=== PATIENT | female | born 1985 | race Caucasian/White ===

== ENCOUNTER → 2016-07-23 | Outpatient (CLI) | payer BC ==
[~2016-07-23] MED LIST: ALBUAER19 INH; FLUT110A INH; MONT1TAB3 PO; PRENTAB26 PO
[2016-07-23 08:04] LABS: THYROID STIMULATING HORMONE 2.34 uIu/ml (0.300-4.500)
[2016-07-23 08:27] LABS: PROLACTIN 12.04 ng/mL
[2016-07-23 08:28] LABS: CALCULATED INSULIN SENSITIVITY 0.377; GLUCOSE LOG 1.9395; INSULIN FASTING 5.2 mU/L (3-25); INSULIN LOG 0.716
== END | disposition home or self-care (01) ==
LOC: C.LAB 07:05
PROVIDERS: ATTEND Obstetrics & Gynecology
DX: Z31.41 Encounter for fertility testing (principal)

== ENCOUNTER 2017-04-25 17:50 | Emergency (ER) | payer BC ==
[~2017-04-25] VITALS: Ht 165.1 cm; Wt 58.0 kg
[~2017-04-25 17:50] MED LIST changes: -MONT1TAB3 PO
[2017-04-25 17:54] VITALS: Ht 165.1 cm; Wt 58.0 kg
[2017-04-25] MEDS ORDERED: MONT1TAB3 PO (18:12)
[2017-04-25 18:38] LABS: BASO % 0.5 %; BASO ABS # 0.04 K/uL (0-0.2); EOS % 2.1 %; EOS ABS # 0.18 K/uL (0-0.5); HEMATOCRIT 43.6 % (37-47); HEMOGLOBIN 15.4 g/dL (12.0-16.0); IG# 0.02 K/uL (0.00-0.02); LYMPH % 41.2 %; LYMPH ABS # 3.57 K/uL (1.2-3.4); MEAN CELL VOLUME 87.4 fL (80-100); MEAN CORPUSCULAR HEMOGLOBIN 30.9 pg (25-34); MEAN CORPUSCULAR HGB CONC 35.3 g/dl (32-36); MEAN PLATELET VOLUME 9.5 fL (7.4-10.4); MONO % 6.8 %; MONO ABS # 0.59 K/uL (0.11-0.59); NEUT % 49.2 %; NEUT ABS # 4.27 K/uL (1.4-6.5); PLATELET COUNT 304 K/uL (130-400); RED CELL DISTRIBUTION WIDTH SD 41.3 fL (36.4-46.3); WHITE BLOOD COUNT 8.67 K/uL (4.8-10.8)
[2017-04-25 18:44] LABS: PTT PATIENT 28.5 SECONDS (21.0-31.0)
[2017-04-25 18:46] LABS: ALBUMIN 3.8 gm/dl (3.4-5.0); CREATININE 0.56 mg/dl (0.60-1.20); POTASSIUM 3.2 mmol/L (3.5-5.1)
[2017-04-25 18:49] LABS: TOTAL PROTEIN 7.7 gm/dl (6.4-8.2)
[2017-04-25] MEDS ORDERED: ALBUT/IPRATROP 3MG/0.5MG NEB 3 ML VIAL INH STA (19:17)
[2017-04-25 19:37] VITALS: O2SAT 100
--- NOTE | 2017-04-25 20:08 | DIAGNOSTIC IMAGING REPORT ---
CHEST 2 VIEWS ROUTINE HISTORY: Short of breath. COMPARISON: Chest 05/08/2012. FINDINGS: The lungs are clear. Cardiac silhouette is normal in size. No pleural effusions. No pneumothorax. Mild S-shaped scoliosis of the thoracic spine. This remains unchanged. IMPRESSION: No acute process. Electronically signed by: Tanvir Green M.D. 04/25/2017 8:06 PM Dictated Date/Time: 04/25/2017 8:06 PM
[2017-04-25] MEDS ORDERED: ALBUAER INH (20:27)
[2017-04-25] MEDS ORDERED: MULT-513 PO (20:27)
--- NOTE | 2017-04-25 20:55 | EMERGENCY ROOM VISIT NOTE ---
History First contact with patient: 19:07 Chief Complaint: RAPID HEART RATE Stated Complaint: SOB, STRUGGLING TO BREATHE, HEART RACING- REFERRED Nursing Triage Summary: Pt c/o "a lot of trouble breathing. I have asthma but it's been under control. I feel like I can't breath in or out well.". Pt states she has asthma, saw Dr. Maylin luna. Pt father had PE. Pt denies chest pain, c/o chest tightness since yesterday same time a trouble breathing. History of Present Illness The patient is a 31 year old female who presents to the Emergency Room with complaints of shortness of breath and chest tightness for the past 2 days. She states she started with URI symptoms last week of cough and congestion, this is improved but then her shortness of breath started to bother her. She reports a history of asthma, she states this has been well controlled for many years. She states she tried her albuterol inhaler once today without much improvement. She reports an episode of feeling like her heart was racing last night, she states this only lasted a few minutes, and denies any feelings of heart racing or palpitations at this time. She did go to an urgent care and was evaluated there, they sent her to the emergency department for further evaluation. Patient states that her father had a PE related to a DVT that came on after surgery, she is concerned that she might have a PE as well and wants to be checked for this. She denies any chest pain, cough, hemoptysis, dizziness or syncope, leg pain or swelling, recent surgeries or immobilization, or exogenous estrogen use. Her last menstrual period was 2 weeks ago and she denies any chance of . She denies any headaches, neck pain or stiffness, fevers or chills, back pain, abdominal pain, nausea or vomiting, diarrhea, bloody or black stools, urinary symptoms, abnormal vaginal bleeding or discharge, or rash. Review of Systems A complete 10 point review of systems was reviewed with the patient with pertinent positives and negatives as per history of present illness. All else were negative. Past Medical/Surgical History Medical Problems: (1) Asthma (2) Mtmmcpw-Iojwb-Ztess disease (3) [place] Teeth Removal Social History Smoking Status: Never Smoker Current/Historical Medications Scheduled Montelukast Sodium (Singulair), 10 MG PO DAILY Multivitamins/Minerals (Mvi With Minerals), 1 TAB PO DAILY Scheduled PRN Albuterol Sulfate (Proventil Hfa), 2 PUFFS INH QID PRN for SOB/Wheezing Allergies Reviewed in chart Physical Exam Vital Signs Date Time Temp Pulse Resp B/P (MAP) Pulse Ox O2 Delivery O2 Flow Rate FiO2 04/25/17 21:55 36.9 58 18 102/55 97 Room Air 04/25/17 20:38 37.0 63 18 91/64 93 Room Air 04/25/17 20:01 64 04/25/17 19:42 36.9 66 18 91/51 99 Room Air 04/25/17 19:37 100 Room Air 04/25/17 19:37 100 Room Air Physical Exam CONSTITUTIONAL: Pleasant and cooperative. No acute distress. Well hydrated, well appearing and well nourished. HEENT: Normocephalic, atraumatic. Pupils equal, round and reactive to light, EOMI. TMs normal. Pharynx normal. Moist membranes. NECK: Supple, full active range of motion without discomfort. RESPIRATORY: Diminished breath sounds throughout, but clear to auscultation bilaterally with no wheezing, crackles, rhonchi or stridor. No accessory muscle use. She is not tachypneic and able to speak in full sentences. Equal expansion bilaterally. CARDIOVASCULAR: Regular rate and rhythm with no murmurs, rubs or gallops. Normal peripheral perfusion. No edema. GASTROINTESTINAL: Soft, nontender, nondistended. No palpable masses or HSM. Bowel sounds present in all quadrants. MUSCULOSKELETAL: Full range of motion of all joints without discomfort. INTEGUMENTARY: No rash or other significant dermatologic conditions noted. NEUROLOGIC: Alert and oriented X 4 with normal affect. Cranial nerves II-XII grossly intact. No focal neurologic deficits noted. Normal strength and sensation in all 4 extremities. Normal speech. Normal gait observed. Medical Decision & Procedures ER Provider Diagnostic Interpretation: CHEST 2 VIEWS ROUTINE HISTORY: Short of breath. COMPARISON: Chest 05/08/2012. FINDINGS: The lungs are clear. Cardiac silhouette is normal in size. No pleural effusions. No pneumothorax. Mild S-shaped scoliosis of the thoracic spine. This remains unchanged. IMPRESSION: No acute process. Laboratory Results 04/25/17 18:05 Red Blood Count 4.99, Mean Corpuscular Volume 87.4, Mean Corpuscular Hemoglobin 30.9, Mean Corpuscular Hemoglobin Concent 35.3, Mean Platelet Volume 9.5, Neutrophils (%) (Auto) 49.2, Lymphocytes (%) (Auto) 41.2, Monocytes (%) (Auto) 6.8, Eosinophils (%) (Auto) 2.1, Basophils (%) (Auto) 0.5, Neutrophils # (Auto) 4.27, Lymphocytes # (Auto) 3.57, Monocytes # (Auto) 0.59, Eosinophils # (Auto) 0.18, Basophils # (Auto) 0.04 04/25/17 18:05 Test 04/25/17 18:05 04/25/17 19:40 04/25/17 19:47 White Blood Count 8.67 K/uL (4.8-10.8) Red Blood Count 4.99 M/uL (4.2-5.4) Hemoglobin 15.4 g/dL (12.0-16.0) Hematocrit 43.6 % (37-47) Mean Corpuscular Volume 87.4 fL (80-100) Mean Corpuscular Hemoglobin 30.9 pg (25-34) Mean Corpuscular Hemoglobin Concent 35.3 g/dl (32-36) Platelet Count 304 K/uL (130-400) Mean Platelet Volume 9.5 fL (7.4-10.4) Neutrophils (%) (Auto) 49.2 % Lymphocytes (%) (Auto) 41.2 % Monocytes (%) (Auto) 6.8 % Eosinophils (%) (Auto) 2.1 % Basophils (%) (Auto) 0.5 % Neutrophils # (Auto) 4.27 K/uL (1.4-6.5) Lymphocytes # (Auto) 3.57 K/uL (1.2-3.4) Monocytes # (Auto) 0.59 K/uL (0.11-0.59) Eosinophils # (Auto) 0.18 K/uL (0-0.5) Basophils # (Auto) 0.04 K/uL (0-0.2) RDW Standard Deviation 41.3 fL (36.4-46.3) RDW Coefficient of Variation 13.0 % (11.5-14.5) Immature Granulocyte % (Auto) 0.2 % Immature Granulocyte # (Auto) 0.02 K/uL (0.00-0.02) Prothrombin Time 11.0 SECONDS (9.0-12.0) Prothromb Time International Ratio 1.0 (0.9-1.1) Activated Partial Thromboplast Time 28.5 SECONDS (21.0-31.0) Partial Thromboplastin Ratio 1.1 Anion Gap 7.0 mmol/L (3-11) Est Creatinine Clear Calc Drug Dose 129.8 ml/min Estimated GFR () 143.0 Estimated GFR (Non- 123.4 BUN/Creatinine Ratio 9.4 (10-20) Calcium Level 9.0 mg/dl (8.5-10.1) Total Bilirubin 0.3 mg/dl (0.2-1) Aspartate Amino Transf (AST/SGOT) 17 U/L (15-37) Alanine Aminotransferase (ALT/SGPT) 18 U/L (12-78) Alkaline Phosphatase 50 U/L (45-117) Total Protein 7.7 gm/dl (6.4-8.2) Albumin 3.8 gm/dl (3.4-5.0) Globulin 3.9 gm/dl (2.5-4.0) Albumin/Globulin Ratio 1.0 (0.9-2) Urine Color YELLOW Urine Appearance CLEAR (CLEAR) Urine pH 6.5 (4.5-7.5) Urine Specific [place] 1.007 (1.000-1.030) Urine Protein NEG (NEG) Urine Glucose (UA) NEG (NEG) Urine Ketones NEG (NEG) Urine Occult Blood NEG (NEG) Urine Nitrite NEG (NEG) Urine Bilirubin NEG (NEG) Urine Urobilinogen NEG (NEG) Urine Leukocyte Esterase TRACE (NEG) Urine WBC (Auto) 1-5 /hpf (0-5) Urine RBC (Auto) 0-4 /hpf (0-4) Urine Hyaline Casts (Auto) 0 /lpf (0-5) Urine Epithelial Cells (Auto) 10-20 /lpf (0-5) Urine Bacteria (Auto) NEG (NEG) Urine Test NEG (NEG) Bedside D-Dimer 417 ng/mlFEU (0-450) Medications Administered Medications (Trade) Dose Ordered Sig/Douglas Route Start Time Stop Time Status Last Admin Dose Admin Albuterol/ Ipratropium (Duoneb) 3 ml NOW STAT INH 04/25/17 19:17 04/25/17 19:19 DC 04/25/17 19:28 3 ML ECG Indication: SOB/dyspnea Rate (beats per minute): 62 Rhythm: normal sinus Findings: no acute ischemic change, no ectopy, other (rightward axis) Change: no significant change (when compared to EKG of 05/08/2012, no changes appreciated) Medical Decision CC: Patient presenting with complaint of shortness of breath, chest tightness Interpretation of Labs: No leukocytosis, no anemia, mild hypokalemia, no other significant electrolyte abnormalities, normal renal function, normal liver enzymes. Negative d-dimer. UA negative, negative urine . Differential Diagnosis: Includes, but not limited to viral URI, bronchitis, pneumonia, asthma exacerbation, pneumothorax, PE, among others. Medication Reconciliation: I attest that I have personally reviewed the patient' s current medication list. Initial vital signs review: I reviewed the patient's vital signs and interpret them as follows: T: Afebrile; BP: Mildly hypotensive (patient states this is her baseline); HR: Within normal limits; RR: Within normal limits; Pulse Ox: Within normal limits on room air. Blood pressure screening: The patient was found to have normal blood pressure on screening and does not require follow-up for repeat blood pressure check. Summary: Patient was evaluated at bedside, history and physical exam performed. Patient is alert and oriented, no acute distress, resting, in the stretcher. Patient does not show any evidence of respiratory distress on exam. Lungs are clear, but diminished throughout. She has not tachycardic or tachypneic, not hypoxic, and no significant risk factors for PE. PERC negative. Patient is very concerned about the possibility of a PE, I discussed that I feel this is a low risk, however she wish to have this ruled out, therefore I performed a d-dimer. Orders were placed at bedside for labs, UA and urine , and DuoNeb treatment, chest x-ray to evaluate for cardiopulmonary disease. Patient discussed with Dr. Dumont, who agrees with my assessment and plan. Labs reviewed as above, unremarkable. Specifically, d-dimer is negative. Chest x-ray is unremarkable, negative for pneumonia or any other acute abnormalities. EKG shows normal sinus rhythm with no acute ischemic changes by my interpretation. Patient reassessed multiple times throughout ED stay, she reports she is feeling much better after DuoNeb treatment. I reassessed her lungs, there still clear, but she is now moving air better. I suspect her symptoms may be related to a mild asthma exacerbation. I updated the patient on all results and plan for discharge, encouraging her to follow closely with her primary care provider. I also instructed the patient to use her albuterol inhaler for her symptoms, and discussed strict return precautions should her symptoms worsen, she verbalized understanding. The patient was discharged home in stable condition and ambulatory. Impression Primary Impression: Shortness of breath Additional Impression: Asthma exacerbation, mild Departure Information Dispostion Home / Self-Care Condition GOOD Referrals No Doctor, Assigned (PCP) Patient Instructions ED Dyspnea Shortness of Breath, ED Inhaler Use, [facility] Additional Instructions You have been evaluated in the emergency department for your shortness of breath. There is no evidence of pneumonia on your chest x-ray. Use your albuterol inhaler TWO puffs every 4 hours as needed for shortness of breath, wheezing, and chest tightness. Drink plenty of fluids to stay well hydrated. Please follow-up with your PCP in the next few days to be rechecked if your symptoms are not getting any better. Please return to the emergency department if your symptoms worsen over the next 2-3 days despite treatment course outlined above. Return to the emergency department if you develop the following symptoms of: inability to swallow solids , liquids, or drool; excessive wheezing or inability to catch your breath; worsening chest pain, coughing up blood, severe dizziness or passing out; fever or pain that becomes unmanageable with [id number] medications; or any other concerns. Work Instructions Return To Work: 2 days Problem Qualifiers
[2017-04-25 21:55] VITALS: BP 102/55; PULSE 58; TEMP 36.9; O2SAT 97
== END 2017-04-25 22:08 | disposition home or self-care (01) ==
LOC: C.EDB 17:51 → C.EDA 22:08
DX: R06.02 Shortness of breath (principal); J45.901 Unspecified asthma with (acute) exacerbation

== ENCOUNTER 2023-03-25 01:30 | Inpatient (IN) ==
[2023-03-25] MEDS ORDERED: LIDOCAINE 1% LOCAL 20 ML VIAL INFIL PRN (04:26)
[2023-03-25] MEDS ORDERED: OXYTOCIN 30 UNITS/NSS 30 UNITS/500 ML BAG IV PRN ×3 (04:26→11:12)
[2023-03-25] MEDS: LACTATED RINGER'S 1,000 ML IV PRN ×2 (04:29→05:25)
[2023-03-25] MEDS ORDERED: fentaNYL citrate PF 100 MCG/2 ML VIAL ONE (04:30)
[2023-03-25] MEDS ORDERED: SODIUM CHLORIDE 0.9% PF INJ 10 ML VIAL ONE (04:30)
[2023-03-25] MEDS ORDERED: ePHEDrine sulfate 50 MG/ML AMP ONE (04:30)
[2023-03-25] MEDS ORDERED: LIDOCAINE 2%/EPINEPHRINE 1:200,000 20 ML PF ONE (04:31)
[2023-03-25] MEDS ORDERED: BUPIVACAINE 0.25% PF 30 ML VIAL ONE (04:31)
[2023-03-25] MEDS ORDERED: fentANYL 2 MCG/ML BUPIVacaine 0.125%-NSS 100ML BAG ONE (04:31)
--- NOTE | 2023-03-25 05:05 | Anesthesiology Consultation ---
Date of Service March 25, 2023 Assessment & Plan ASA ASA2 Proposed Anesthesia Anesthesia Type: Labor Epidural Risk / Benefits Reviewed With: PT / POA / Parent / Guardian, Accepts Plan and Informed Consent Obtained History Height/Weight Height: 5 ft 4.5 in Weight: 73.028 kg Allergies Allergy/AdvReac Type Severity Reaction Status Date / Time Sulfa (Sulfonamide Allergy Severe Redness of Verified 03/25/23 01:48 Antibiotics) Skin Medications Home Medications Medication Instructions Recorded Confirmed Last Taken albuterol sulfate 90 mcg/actuation 2 puff inhalation Q6H PRN wheezing 12/06/20 03/25/23 Unknown aerosol inhaler (Proventil HFA) ascorbic acid (vitamin C) 1,000 mg 2 g PO DAILY 08/03/22 03/25/23 03/24/23 capsule cholecalciferol (vitamin D3) 125 125 mcg PO DAILY 08/03/22 03/25/23 03/24/23 mcg (5,000 unit) capsule prenat.vits,karl,hjo-ublh-fwbtx 1 tab PO DAILY 08/03/22 03/25/23 03/24/23 levothyroxine 50 mcg tablet See Rx Instructions PO DAILY #114 12/14/22 03/25/23 03/24/23 tabs Active Medications Generic Name Dose Route Start Last Admin Trade Name Freq PRN Reason Stop Dose Admin Lactated Ringer's 1,000 mls @ 125 mls/hr 03/25/23 04:26 03/25/23 05:25 Lr IV 03/27/23 04:25 125 mls/hr .Q8H PRN Administration L&D Protocol Protocol Past Medical History Medical History Nico's disease Asthma well controlled-rescue inhaler as needed Vitamin D deficiency Warts, genital Hx of migraines UTI (urinary tract infection) History of chicken pox Hyperandrogenism Hypothyroidism affecting Shortness of breath Exercise / Class Metabolic Activity II 4-5 Yardwork/Stairs/Walk up hill Past Family History Family History Grandmother (Maternal) Colorectal cancer Father FH: prostate cancer Brother Diabetes Denies family history of Ovarian cancer Breast cancer Past Surgical History Surgical History (Reviewed 03/25/23 @ 05:05 by HOMA Palomo H/O dilation and curettage [place] teeth extracted Past Anesthesia History No Hx of Anesthesia Complications and No Family Hx of Anesthesia Complications History of PONV No Hx of PONV and No Hx of Motion Sickness Social History Smoking Status: Never smoker Do You Dip or Chew Tobacco: No Hx Alcohol Use: No Hx Substance Use: No substance use type: does not use Review of Systems denies fever/cough/ colds/ chest pain/ SOB/ ALVINO denies ALVINO Physical Exam Vital Signs Last Vital Signs Temp 36.9 C 03/25/23 01:51 Pulse 65 03/25/23 05:11 Resp 18 03/25/23 01:51 BP 107/56 L 03/25/23 01:50 Pulse Ox 99 03/25/23 05:11 O2 Del Method Room Air 03/25/23 01:51 ENMT Mouth: no TMJ abnormality and no dentition abnormality Thyromental Distance: > or= 3.5 Finger Breadths Mallampati Class: II Neck neck extension not limited Respiratory normal respiratory effort; no respiratory distress Auscultation: lungs clear to auscultation bilaterally Cardiovascular Rate/Rhythm: regular rate and regular rhythm Neurologic moves all extremities Psychiatric Orientation: alert and oriented x 3 Testing Laboratory Results 03/25/23 04:45
--- NOTE | 2023-03-25 05:06 | History & Physical Report ---
Date of Service March 25, 2023 Assessment & Plan (1) Active labor: Plan: 37 yo at 40 wga admitted in labor VSS Fetus cat 1 Labor - manage expectantly, pit prn GBS neg desires epidural History of Present Illness Chief Complaint: ctx Primary Care Provider: Amy Padilla 37 yo at 40 wga presents w/ ctx increasing in frequency and intensity. +FM; denies lOF, VB. Initial exam 3/50/-1 by nursing, progressed to 4.5/80/-1 PNI:Hypothyroid AMA Charcot Dalia Tooth Psast [employer] Hx: G1 2012 SAB G2 2014 G3 current Allergies Allergy/AdvReac Type Severity Reaction Status Date / Time Sulfa (Sulfonamide Allergy Severe Redness of Verified 03/25/23 01:48 Antibiotics) Skin Home Medications Medication Instructions Recorded Confirmed Type albuterol sulfate 90 mcg/actuation 2 puff inhalation Q6H PRN wheezing 12/06/20 03/25/23 History aerosol inhaler (Proventil HFA) ascorbic acid (vitamin C) 1,000 mg 2 g PO DAILY 08/03/22 03/25/23 History capsule cholecalciferol (vitamin D3) 125 125 mcg PO DAILY 08/03/22 03/25/23 History mcg (5,000 unit) capsule prenat.vits,karl,wtl-opsz-chqld 1 tab PO DAILY 08/03/22 03/25/23 History levothyroxine 50 mcg tablet See Rx Instructions PO DAILY #114 12/14/22 03/25/23 Rx tabs Patient History Medical History (Updated 03/25/23 @ 07:40 by Amanda Cole MD) Nico's disease Asthma well controlled-rescue inhaler as needed Vitamin D deficiency Warts, genital Hx of migraines UTI (urinary tract infection) History of chicken pox Hyperandrogenism Hypothyroidism affecting Shortness of breath Surgical History H/O dilation and curettage [place] teeth extracted Family History Grandmother (Maternal) Colorectal cancer Father FH: prostate cancer Brother Diabetes Denies family history of Ovarian cancer Breast cancer Social History Smoking Status: Never smoker Do You Dip or Chew Tobacco: No; Hx Alcohol Use: No Hx Substance Use: No Preferred Language: Niuean Communication Ability: Effective Mailing Clerk Required: No Beliefs That Will Affect Care: None marital status: marital status details: Armando Fraser (35) [phone] Current Living Situation: Spouse Current Living Situation Comment: House with and daughter current occupational status: employed 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 Feels Safe at Home: Yes Assistive Devices: None Physical Exam Genitourinary: OB Exam Monitor Tracing: + external FHT monitor used, + external uterine monitor used and + category I Results & Data Vital Signs (Past 12 Hours) Vital Signs Temp Pulse Resp BP Pulse Ox O2 Del Method 03/25/23 04:56 67 99 03/25/23 04:51 70 99 03/25/23 04:46 78 99 03/25/23 04:41 68 98 03/25/23 04:36 81 99 03/25/23 01:51 98.4 F 18 Room Air 03/25/23 01:50 98.4 F 63 18 107/56 L Laboratory Results OB Labs: Blood Type AB Positive 08/18/22 Antibody Screen NEGATIVE 08/18/22 Hemoglobin 11.4 g/dl (12.0-16.0) L 01/01/23 Hematocrit 33.1 % (37.0-47.0) L 01/01/23 Mean Corpuscular Volume 89.2 fL (80.0-100.0) 12/15/22 Platelet Count 269 K/uL (130-400) 12/15/22 Rubella IgG Antibody Immune (Immune) 08/18/22 Rapid Plasma Reagin Nonreactive (Nonreactive) 08/18/22 Hepatitis B Surface Antigen. NON-REACTIVE (NON-REACTIVE) 08/18/22 Hepatitis C Antibody (EIA) NON-REACTIVE (NON-REACTIVE) 08/18/22 HIV (1&2) Ag and Ab Confirmation NON-REACTIVE (NON-REACTIVE) 08/18/22 Glucose 1 Hour 50 gm Load 106 mg/dl (70-130) 01/01/23 Maternal Serum Alpha Fetoprotein 29.4 ng/mL 10/10/22 OB Optional Labs: Chlamydia trachomatis RNA Not Detected (NotDetected) 08/18/22 Neisseria gonorrhoeae RNA Not Detected (NotDetected) 08/18/22 Thyroid Stimulating Hormone (TSH) 0.769 uIu/ml (0.300-4.500) 02/06/23 Alpha Fetoprotein Triple Screen SEE NOTE 10/10/22 Labs Reviewed: Horizon 14-negative--mln cfdna-low risk--mln neg afp--akh GBS neg Code Status & VTE Plan VTE Prophylaxis Plan VTE Prophylaxis will be ordered: No Coding Level of Care Code None Diagnoses Active labor
[2023-03-25 05:11] LABS: Hematocrit (blood only) 33.6 % (37.0-47.0); Hemoglobin 11.7 g/dl (12.0-16.0); Mean Corpuscular Hemoglobin 31.1 pg (25.0-34.0); Mean Corpuscular Hgb Conc 34.8 g/dL (32.0-36.0); Mean Corpuscular Volume 89.4 fL (80.0-100.0); Mean Platelet Volume 10.2 fL (9.4-12.4); Platelet Count 228 K/uL (130-400); RDW Coefficient of Variation 13.3 % (11.5-14.5); RDW Standard Deviation 43.5 fL (36.4-46.3); Red Blood Count 3.76 M/uL (4.20-5.40); White Blood Count 11.57 K/ul (4.8-10.8)
[2023-03-25] MEDS ORDERED: ACETAMINOPHEN 1,000 MG/100 ML VIAL IV PRN (05:48)
--- NOTE | 2023-03-25 05:50 | Communication Note ---
Date of Service: March 25, 2023
[2023-03-25] MEDS ORDERED: NALOXONE HCL 0.4 MG/1 ML VIAL/CARP IV PRN ×2 (07:00→12:30)
[2023-03-25] MEDS ORDERED: ROPIVACAINE 0.5% PF 5 MG/ML 20 ML VIAL EPI PRN (07:00)
[2023-03-25] MEDS ORDERED: fentANYL 2 MCG/ML BUPIVacaine 0.125%-NSS 100ML BAG EPI PRN (07:00)
[2023-03-25] MEDS ORDERED: SODIUM CHLORIDE 0.9% PF INJ 10 ML VIAL EPI PRN (07:00)
[2023-03-25] MEDS ORDERED: fentaNYL citrate PF 100 MCG/2 ML VIAL EPI STA (07:00)
[2023-03-25] MEDS ORDERED: BUPIVACAINE 0.25% PF 30 ML VIAL EPI PRN (07:00)
[2023-03-25] MEDS ORDERED: BUPIVACAINE 0.25% PF 30 ML VIAL EPI STA (07:00)
[2023-03-25] MEDS ORDERED: NALOXONE HCL 1 MG in SODIUM CHLORIDE 0.9% 1,000 ML IV PRN ×2 (07:00→12:30)
[2023-03-25] MEDS ORDERED: diphenhydrAMINE 50 MG/ML VIAL IV PRN ×2 (07:00→12:30)
[2023-03-25] MEDS ORDERED: ePHEDrine sulfate 50 MG/ML AMP IV PRN ×3 (07:00→13:05)
[2023-03-25] MEDS ORDERED: NALBUPHINE HCL 5 MG in SYRINGE 0 ML IV PRN ×2 (07:00→12:30)
[2023-03-25] MEDS ORDERED: LIDOCAINE 2% MPF LOCAL 5 ML VIAL EPI PRN (07:00)
[2023-03-25] MEDS ORDERED: fentaNYL citrate PF 100 MCG/2 ML VIAL EPI PRN (07:00)
[2023-03-25] MEDS ORDERED: LIDOCAINE 2%/EPINEPHRINE 1:200,000 20 ML PF EPI STA (07:00)
[2023-03-25] MEDS ORDERED: SODIUM CHLORIDE 0.9% PF INJ 10 ML VIAL EPI STA (07:00)
[2023-03-25] MEDS ORDERED: ONDANSETRON INJ 2 MG/ML 2 ML VIAL IV PRN ×2 (07:00→13:05)
--- NOTE | 2023-03-25 07:43 | Labor Progress Brief Note ---
Date of Service March 25, 2023 Subjective Comfortable w/ epidural, had DUPONT from wet tap but improving Assessment & Plan (1) Active labor: Plan: 37 yo at 40 wga admitted in labor VSS Fetus cat 1 Labor - s/p arom, will see if helps ctx pattern. Pit prn GBS neg epidural in place Admission and Anticipated Discharge Date Admission Date: March 25, 2023 Physical Exam Genitourinary: Manual OB Exam: + cervical dilation (4.5), + cervical effacement 70%, + station -1 and + amniotic fluid (arom clear) OB Exam Monitor Tracing: + external FHT monitor used, + external uterine monitor used and + category I Results & Data Vital Signs (Past 12 Hours) Vital Signs Temp Pulse Resp BP Pulse Ox O2 Del Method 03/25/23 07:36 76 100 03/25/23 07:31 64 98 03/25/23 07:27 69 91/51 L 03/25/23 07:26 67 99 03/25/23 07:21 67 98 03/25/23 07:16 63 100 03/25/23 07:12 60 101/55 L 03/25/23 07:11 60 99 03/25/23 07:06 65 99 03/25/23 07:01 66 99 03/25/23 06:58 98.2 F 20 03/25/23 06:56 61 99 03/25/23 06:55 64 104/62 03/25/23 06:51 61 99 03/25/23 06:46 63 98 03/25/23 06:41 60 98 03/25/23 06:40 67 93/52 L 03/25/23 06:36 64 99 03/25/23 06:31 99 03/25/23 06:31 64 03/25/23 06:31 65 98/57 L 03/25/23 06:30 16 03/25/23 06:30 16 03/25/23 06:26 64 98 03/25/23 06:25 60 89/52 L 03/25/23 06:21 63 98 03/25/23 06:16 65 98 03/25/23 06:11 67 96/54 L 98 03/25/23 06:06 68 98 03/25/23 06:01 68 97 03/25/23 06:00 18 03/25/23 06:00 18 03/25/23 05:56 68 98 03/25/23 05:54 70 110/55 L 03/25/23 05:52 66 107/58 L 03/25/23 05:51 69 98 03/25/23 05:50 63 97/52 L 03/25/23 05:48 65 109/53 L 03/25/23 05:46 66 101/56 L 98 03/25/23 05:44 65 95/52 L 03/25/23 05:42 76 101/50 L 03/25/23 05:41 77 99 03/25/23 05:40 71 105/58 L 03/25/23 05:38 73 97/53 L 03/25/23 05:36 99 03/25/23 05:36 74 03/25/23 05:36 70 114/58 L 03/25/23 05:34 71 102/56 L 03/25/23 05:32 73 116/56 L 03/25/23 05:31 73 99 03/25/23 05:30 78 117/61 03/25/23 05:26 71 98 03/25/23 05:21 77 99 03/25/23 05:16 75 120/59 L 100 03/25/23 05:14 20 03/25/23 05:14 98.2 F 20 03/25/23 05:11 65 99 03/25/23 05:06 66 99 03/25/23 05:01 71 100 03/25/23 04:56 67 99 03/25/23 04:51 70 99 03/25/23 04:46 78 99 03/25/23 04:41 68 98 03/25/23 04:36 81 99 03/25/23 01:51 98.4 F 18 Room Air 03/25/23 01:50 98.4 F 63 18 107/56 L Coding Level of Care Code None Diagnoses Active labor
--- NOTE | 2023-03-25 10:48 | Delivery Summary ---
Vaginal Delivery Summary Date of Service March 25, 2023 Vaginal Delivery Summary [facility] PREOPERATIVE DIAGNOSIS: 1. Single intrauterine at 40 wga 2. Labor 3. Hypothyroid 4. AMA POSTOPERATIVE DIAGNOSIS: 1. Single intrauterine at 40 wga 2. Labor 3. Hypothyroid 4. AMA 5. Delivered PROCEDURE: 1. Normal spontaneous vaginal delivery. SURGEON: Amanda Cole MD ANESTHESIA: Epidural. ESTIMATED BLOOD LOSS: 300 mL FLUIDS: Continuous LR. URINE OUTPUT: None. COMPLICATIONS: None. CONDITION: Stable. INDICATIONS: 37 yo at 40 wga presented w/ ctx increasing in frequency and intensity. On arrival she was 3cm and progressed to 4. She received an epidural for pain control. She underwent arom. Pitocin was started due to contractions spacing out. She progressed to complete and desired to push FINDINGS: A viable female , weight pending with Apgars of 8 and 9 at 1 and 5 minutes respectively. SPECIMEN: Cord blood OPERATIVE REPORT: The patient progressed to 10 cm, 100% effaced and +2 station, pushed over intact perineum with anesthesia to deliver a viable female , weight and Apgars as above. Head of delivered in JAIR position. No nuchal cord was present. Body and shoulders were delivered without difficulty. was delivered to maternal abdomen and nursing staff. Delayed cord clamping was performed for 60 seconds. Cord was clamped and cut. Cord blood was obtained. Placenta delivered spontaneously intact with 3-vessel cord. IV oxytocin and fundal massage were given for excellent hemostasis. Vagina, cervix, perineum, and placenta were inspected. A small vaginal laceration was noted and repaired using 3-0 vicryl. There was excellent hemostasis. Sponge and needle counts correct x2. No sponges were left behind. Mother and stable in immediate period. [facility] [place] Vaginal Delivery Codes: 52872 global code for the antepartum, delivery, and post- Delivery Type Details: [facility]
[2023-03-25] MEDS ORDERED: ALBUTEROL HFA 8 GM INHALER INH PRN (11:12)
[2023-03-25] MEDS ORDERED: DIPHTHERIA/TETANUS/PERTUSSIS Vaccine (Tdap, Age 7+yrs) 0.5mL SYR/VL IM ONE (11:12)
[2023-03-25] MEDS ORDERED: HYDROCORTISONE ACETATE 25 MG SUPP PR PRN (11:12)
[2023-03-25] MEDS ORDERED: BENZOCAINE 20% SPRY 85 APPLN/85 GM CAN EXT PRN (11:12)
[2023-03-25] MEDS ORDERED: ACETAMINOPHEN 325 MG TAB PO PRN (11:12)
[2023-03-25] MEDS ORDERED: bisacodyL 10 MG SUPP PR PRN (11:12)
[2023-03-25] MEDS ORDERED: COSYNTROPIN 1,000 MCG in SODIUM CHLORIDE 0.9% 50 ML IV ONE (12:00)
[2023-03-25] MEDS ORDERED: MoRPHine SULFATE PF 1 MG/ML 10 ML AMP/VIAL INT SPINAL ONE (12:30)
[2023-03-25] MEDS ORDERED: DC INTRASPINAL MORPHINE SCH (12:30)
[2023-03-25] MEDS ORDERED: LACTATED RINGER'S 500 ML IV PRN (12:30)
[2023-03-25] MEDS ORDERED: NO NARCOTICS OR SEDATIVES SCH (12:30)
[2023-03-25] MEDS ORDERED: NALOXONE HCL 0.08 MG in SYRINGE 1.8 ML IV PRN (12:30)
[2023-03-25] MEDS ORDERED: SODIUM CHLORIDE 0.9% 1,000 ML IV SCH (12:30)
[2023-03-25] MEDS ORDERED: MoRPHine SULFATE PF 1 MG/ML 10 ML AMP/VIAL ONE (12:33)
[2023-03-25] MEDS ORDERED: PROMETHAZINE HCL 6.25 MG in SODIUM CHLORIDE 0.9% 50 ML IV PRN (13:05)
[2023-03-25] MEDS ORDERED: ATROPINE SULFATE 0.1 MG/ML 10ML SYR IV PRN (13:05)
[2023-03-25] MEDS ORDERED: fentaNYL citrate PF 100 MCG/2 ML VIAL IV PRN (13:05)
--- NOTE | 2023-03-25 13:05 | Anesthesia Procedure Note ---
Date of Service March 25, 2023 Anesthesia Post Epidural Note Vital Signs Vital Signs: Temp Pulse Resp BP Pulse Ox O2 Del Method 36.8 C 63 18 92/54 L 97 Room Air 03/25/23 09:00 03/25/23 13:00 03/25/23 10:00 03/25/23 12:55 03/25/23 13:00 03/25/23 01:51 Pain Intensity Bilateral Abdomen: Pain Intensity: 3 Notes Mental Status: alert / awake / arousable Nausea / Vomiting: adequately controlled Pain: adequately controlled Airway Patency, RR, SpO2: stable & adequate BP & HR: stable & adequate Hydration State: stable & adequate Neuraxial Anesthesia: was administered and sensory block is resolving Anesthetic Complications: no major complications apparent and Pt Satisfied with anesthetic care Epidural: Removed without complications and With tip intact Notes: Dural puncture noted by anesthesiologist during procedure. 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 Will attempt to prophylax with 1g IV cosyntropin, 20cc epidural saline, 2mg epidural morphine. Will offer blood patch if she develops positional headache.
[2023-03-25] MEDS: IBUPROFEN 600 MG TAB PO PRN (20:49)
[2023-03-25] MEDS: DOCUSATE SODIUM 100 MG CAP PO SCH (20:49)
[2023-03-26] MEDS: IBUPROFEN 600 MG TAB PO PRN (04:48)
[2023-03-26] MEDS ORDERED: LEVOTHYROXINE SODIUM 50 MCG TABLET PO SCH (06:30)
[2023-03-26] MEDS ORDERED: FERROUS SULFATE 325 MG TAB PO SCH (08:00)
[2023-03-26] MEDS ORDERED: PRENATAL VITAMIN 1 TAB PO SCH (08:00)
--- NOTE | 2023-03-26 08:00 | Obstetrical Progress Note ---
Date of Service March 26, 2023 Assessment & Plan (1) Encounter for care and examination after delivery: 37 yo PP1 from , doing well -Meeting all pp milestones -AB+/rubella immune/ -f/u 6 weeks for appt, desires dc home and ok t odo so at 24 hrs Subjective Ambulation: ambulating normally Voiding: no voiding problems Passing Gas:: Yes Diet Tolerance:: regular diet Lochia:: Small Feeding Type:: breast feeding Pain well managed with medication Review of Systems Denies fevers, chills, n/v, DUPONT, CP, SOB Physical Exam Constitutional WD/WN, vitals as above no acute distress Respiratory normal respiratory effort, lungs clear to auscultation Cardiovascular RRR, no murmur, no edema Gastrointestinal (Abdomen) Percussion/Palpation: abdomen soft; abdomen nontender fundus firm at umbilicus and NT Musculoskeletal BLE symmetric, nonerythematous, nontender Results & Data Vital Signs (Past 12 Hours) Vital Signs Temp Pulse Resp BP Pulse Ox Pulse Ox O2 Del Method 03/26/23 07:12 97.9 F 56 L 16 89/45 L 96 Room Air 03/26/23 06:21 16 96 03/26/23 04:30 98.1 F 65 16 113/66 95 Room Air 03/26/23 04:12 16 96 03/26/23 03:18 16 95 03/26/23 01:45 16 95 03/26/23 00:45 16 96 03/26/23 00:45 98.1 F 60 16 95/83 L 96 Room Air 03/25/23 23:03 16 95 03/25/23 22:30 16 96 03/25/23 21:30 16 97 03/25/23 20:50 98.4 F 62 16 101/55 L 96 Room Air 03/25/23 20:50 96 03/25/23 20:30 16 97 O2 Del Method 03/26/23 07:12 03/26/23 06:21 03/26/23 04:30 03/26/23 04:12 03/26/23 03:18 03/26/23 01:45 03/26/23 00:45 03/26/23 00:45 03/25/23 23:03 03/25/23 22:30 03/25/23 21:30 03/25/23 20:50 03/25/23 20:50 Room Air 03/25/23 20:30
[2023-03-26] MEDS: DOCUSATE SODIUM 100 MG CAP PO SCH (08:07)
--- NOTE | 2023-03-26 09:15 | Communication Note ---
Date of Service: March 26, 2023 Patient is up and ambulating without headache. Plan is for home discharge today. Discussed return to ED for blood patch if necessary, can return if she develops symptoms of PDPH and would like to pursue intervention.
[2023-03-26] MEDS ORDERED: bisacodyL 5 MG TABEC PO SCH (20:00)
[2023-03-31] MEDS ORDERED: LEVOTHYROXINE SODIUM 100 MCG TABLET PO SCH (06:30)
== END 2023-03-26 11:50 | disposition home or self-care (01) | DRG 807 ==
LOC: OPB 01:30 → 4S1 01:34 → 4E2 16:04